=== PATIENT | male | born 1940 ===

== ENCOUNTER 2024-06-13 09:04 | Day surgery (SDC) | payer OTHER ==
[2024-06-07 12:20] VITALS: BP 160/90
[~2024-06-13] VITALS: Ht 160 cm; Wt 100.7 kg
[~2024-06-13 09:04] MED LIST: COZAAR100 MG PO; KEPPRA500 MG PO; LASIX20 MG PO; NORVASC2.5 MG PO; PEPCID AC20 MG PO; PROSCAR5 MG PO; TAMS0.4C PO; TOPROL XL50 M1 PO
[2024-06-13] MEDS ORDERED: CEFTRIAXONE SODIUM 2,000 MG VIAL ONE (11:00)
[2024-06-13] MEDS ORDERED: METRONIDAZOLE/SODIUM CHLORIDE 500 MG/100 ML PIGGYBACK IV ONE (11:01)
== END 2024-06-13 13:51 | disposition home or self-care (01) ==
LOC: O/R 09:04 → SURH 09:04 → CIR.AMB 09:04 → EDSTATUS 11:30 → SURH 11:30 → CIR.AMB 13:51 → O/R 13:51
PROVIDERS: ATTEND Surgery
DX: C20 Malignant neoplasm of rectum (principal); Z53.09 Procedure and treatment not carried out because of other contraindication

== ENCOUNTER → 2024-12-26 | Day surgery (SDC) | payer OTHER ==
[2024-12-18 11:24] VITALS: BP 160/78
[2024-12-18 12:15] LABS: BASO % 1.3 % (0.1-1.2); EOS # 0.16 (0.04-0.54); EOS % 2.1 % (0.7-7.0); LYMPH # 2.24 (1.18-3.74); LYMPH % 28.9 % (19.3-53.1); MEAN PLATELET VOLUME 11.30 fl (9.4-12.4); MONO # 0.52 (0.24-0.82); MONO % 6.7 % (4.7-12.5); NEUT # 4.73 (1.56-6.13); NEUT % 60.9 % (34.0-71.1); RED CELL DISTRIBUTION WIDTH 12.3 % (11.6-14.4)
[2024-12-18 12:30] LABS: URINE APPEARANCE Clear; URINE BILIRRUBIN Negative (NEGATIVE); URINE BLOOD Negative; URINE COLOR Yellow; URINE GLUCOSE Negative (NEGATIVE); URINE KETONE Negative (NEGATIVE); URINE LEUKOCYTE Negative; URINE NITRATE Negative; URINE PROTEIN Negative (NEGATIVE); URINE UROBILINOGEN 0.2 E.U./dl
[2024-12-18 12:34] LABS: URINE BACTERIA 10.7 uL (0.0-1933); URINE RBC 8.7 uL (0.0-20.8)
[2024-12-18 12:37] LABS: URINE CAST 0.00 uL (0.0-1.40); URINE EPITHELIAL CELLS 0.7 uL (0.0-38.8); URINE WBC 1.5 uL (0.0-23.2)
[2024-12-18 12:43] LABS: INR 1.04
[2024-12-18 13:02] LABS: ALT/SGPT 30.0 U/L (12-78); AST/SGOT 19.0 U/L (15-37); BILIRUBIN TOTAL 1.08 mg/dL (0.3-1.2); BUN CREA RATIO 12.0 (7.0-25.0); CREATININE SERUM 1.04 mg/dL (0.70-1.30); GFR 68.04; GLOBULINA 3.2 G/DL (2.4-3.5); GLUCOSE FASTING 103.0 mg/dL (65-100); OSMOLALITY SERUM 285.0 MOSM/KG (275-295)
[~2024-12-26] VITALS: Ht 170.2 cm; Wt 91.6 kg
[~2024-12-26] MED LIST changes: +CEFTRIAXONE SODIUM 2,000 MG VIAL ONE; +METRONIDAZOLE/SODIUM CHLORIDE 500 MG/100 ML PIGGYBACK IV ONE
== END | disposition home or self-care (01) ==
LOC: SURH 07:00 → CIR.AMB 08:00 → SURH 08:00 → O/R 08:00 → SURH 08:45 → EDSTATUS 08:45
PROVIDERS: ATTEND Surgery
DX: Z53.09 Procedure and treatment not carried out because of other contraindication (principal); R00.1 Bradycardia, unspecified; C20 Malignant neoplasm of rectum